=== PATIENT | female | born 1950 | race Caucasian/White ===

== ENCOUNTER → 2016-10-29 | Outpatient (CLI) | payer OTHER, BC ==
--- NOTE | 2016-10-29 09:18 | DX ---
Right hip series 2 views 0840 hours. History: Follow-up right total hip arthroplasty performed September 21, 2016. Findings: Comparison to July 09, 2016. Right total hip arthroplasty is in good position and alignment. No fractures are seen. The left hip j oint space is normal. There is stable mild sclerosis at the right SI joint. The symphysis is normal i n appearance. There is no evidence of pelvic tilt on upright view There are stable curvilinear calcif ications along the pelvic sidewall bilaterally as well as phlebolith in the left lower pelvis. Impression: 1. Good position and alignment of right total hip arthroplasty. 2. Mild sclerosis about the right SI joint probably from underlying degenerative change.
== END ==
LOC: BMCIMAGING 08:30
PROVIDERS: ATTEND Physician Assistant
DX: Z09 Encounter for follow-up examination after completed treatment for conditions other than malignant neoplasm (principal); Z96.641 Presence of right artificial hip joint

== ENCOUNTER → 2016-12-10 | Outpatient (CLI) | payer OTHER, BC | LOC: BMCIMAGING 08:41 | PROVIDERS: ATTEND Orthopaedic Surgery | DX: Z09 Encounter for follow-up examination after completed treatment for conditions other than malignant neoplasm (principal); Z96.641 Presence of right artificial hip joint ==

== ENCOUNTER → 2017-03-10 | Outpatient (CLI) | payer OTHER, BC | LOC: BMCIMAGING 08:33 | PROVIDERS: ATTEND Orthopaedic Surgery | DX: Z47.1 Aftercare following joint replacement surgery (principal); Z96.641 Presence of right artificial hip joint ==

== ENCOUNTER → 2017-07-15 | Outpatient (CLI) | payer OTHER, BC | LOC: BMCIMAGING 10:30 | PROVIDERS: ATTEND Family Medicine | DX: M25.511 Pain in right shoulder (principal); W19.XXXA Unspecified fall, initial encounter ==

== ENCOUNTER → 2017-09-15 | Outpatient (CLI) | payer OTHER, BC | LOC: BMCIMAGING 08:37 | PROVIDERS: ATTEND Orthopaedic Surgery | DX: Z96.641 Presence of right artificial hip joint (principal) ==

== ENCOUNTER → 2017-10-16 | Outpatient (CLI) | payer OTHER, BC | LOC: FIMAGING 09:27 | PROVIDERS: ATTEND Orthopaedic Surgery Hand Surgery | DX: M24.811 Other specific joint derangements of right shoulder, not elsewhere classified (principal); S46.811A Strain of other muscles, fascia and tendons at shoulder and upper arm level, right arm, initial encounter; M62.89 Other specified disorders of muscle; M19.011 Primary osteoarthritis, right shoulder; M75.31 Calcific tendinitis of right shoulder ==

== ENCOUNTER → 2017-10-30 | Outpatient (CLI) | payer OTHER, BC | LOC: FIMAGING 10:19 | PROVIDERS: ATTEND Orthopaedic Surgery | DX: Z96.641 Presence of right artificial hip joint (principal) ==

== ENCOUNTER 2017-11-16 05:53 | Day surgery (SDC) | payer OTHER, BC ==
[2017-11-16] MEDS ORDERED: ceFAZolin 2 GM/SWFI 2 GM/20 ML SYR IVP ONE (06:00)
[2017-11-16] MEDS ORDERED: LIDOCAINE 1% 2 ML INJ ID PRN (06:19)
[2017-11-16] MEDS ORDERED: LR 1,000 ML IV ONE (06:19)
[2017-11-16] MEDS ORDERED: BUPIVACAINE/EPI 0.5% 30 ML SDV ONE (06:46)
--- NOTE | 2017-11-16 06:47 | PDHPUP ---
History & Physical Update H&P update statement: This history and physical update is based on an assessment of the patient which was completed after admission or registration (within 24 hours), but prior to the surgery/procedure. H&P update: H&P reviewed & patient examined, no change in patient's condition since H&P completed
--- NOTE | 2017-11-16 06:49 | PDANEPAE ---
ANE History of Present Illness right shoulder scope ANE Past Medical History - Cardiovascular History Hx Hypertension: Yes Hx Arrhythmias: No Hx Chest Pain: No Hx Coronary Artery / Peripheral Vascular Disease: No Hx CHF / Valvular Disease: No Hx Palpitations: No Cardiovascular History Comment: pcp monitors bp medications - Pulmonary History Hx COPD: No Hx Asthma/Reactive Airway Disease: No Hx Recent Upper Respiratory Infection: No Hx Oxygen in Use at Home: No Hx Sleep Apnea: No Sleep Apnea Screening Result - Last Documented: Negative - Neurologic History Hx Cerebrovascular Accident: No Hx Seizures: No Hx Dementia: No - Endocrine History Hx Diabetes: No Hypothyroid: Yes Obesity: no Endocrine History Comment: hypothyroidism - Renal History Hx Renal Disorders: No - Liver History Hx Hepatic Disorders: No - Neurological & Psychiatric Hx Hx Neurological and Psychiatric Disorders: No - Cancer History Hx Cancer: No - Congenital Disorder History Hx Congenital Disorders: No - GI History GERD: no Hx Gastrointestinal Disorders: No - Other Health History Other Health History: wears glasses - Chronic Pain History Chronic Pain: Yes (R SHOULDER) - Surgical History Prior Surgeries: R FLORIN. surgery on bilateral feet. right eye surgery with jenelle 05/24/13. hysterectomy 35 yrs ago ANE Review of Systems Review of systems is: negative Review of Systems: - Exercise capacity METS (RN): 4 METS ANE Patient History - Allergies Allergies/Adverse Reactions: celecoxib [From Celebrex] Allergy (Severe, Verified 09/21/16 06:37) Swelling/neck,face,throat - Home Medications Home medications: home medication list seen and reviewed Home Medications: Acetaminophen [Tylenol 325mg (*)] 325 mg PO DAILY PRN 08/11/16 [Last Taken 09/19] Diltiazem HCl [Cartia XT 180mg] 180 mg PO DAILY 08/11/16 [Last Taken 11/16/17 05 :00] Estradiol [Vivelle-Dot 0.05MG (*)] 0.05 mg TD Q4D 08/11/16 [Last Taken 11/16/17] Levothyroxine [Synthroid 50 mcg (*)] 50 mcg PO DAILY06 08/11/16 [Last Taken 05:00] - NPO status NPO Since - Liquids (Date): 11/15/17 NPO Since - Liquids (Time): 19:00 NPO Since - Solids (Date): 11/15/17 NPO Since - Solids (Time): 19:00 - Anes Hx Anes Hx: no prior problems - Smoking Hx Smoking Status: Never smoked - Family Anes Hx Family Hx Anesthesia Complications: none ANE Labs/Vital Signs - Vital Signs Blood Pressure: 134/85 Heart Rate: 72 Respiratory Rate: 18 O2 Sat (%): 93 Height: 165.1 cm Weight: 70.307 kg ANE Physical Exam - Airway Neck exam: FROM Mallampati Score: Class 1 Mouth exam: normal dental/mouth exam - Pulmonary Pulmonary: no respiratory distress - Cardiovascular Cardiovascular: regular rate and rhythym - ASA Status ASA Status: II ANE Anesthesia Plan Anesthesia Plan: GA w LMA Regional Anesthesia: single shot NB, interscalene BP NB
[2017-11-16] MEDS ORDERED: PROPOFOL 200 MG/20 ML VIAL ONE (06:52)
[2017-11-16] MEDS ORDERED: fentaNYL 100 MCG/2 ML INJ ONE ×4 (06:52→11:51)
[2017-11-16] MEDS ORDERED: DEXAMETHASONE 4 MG/ML VIAL ONE (06:53)
[2017-11-16] MEDS ORDERED: LIDOCAINE 2% 5 ML SDV ONE (06:53)
[2017-11-16] MEDS ORDERED: ONDANSETRON 4 MG/2 ML VIAL ONE ×2 (06:53→12:25)
[2017-11-16] MEDS ORDERED: MIDAZOLAM 2 MG/2 ML VIAL ONE (07:00)
[2017-11-16] MEDS ORDERED: BUPIVACAINE 0.5% 30 ML SDV ONE (07:02)
[2017-11-16] MEDS ORDERED: HYDROCODONE/APAP 5/325 TAB PO PRN (10:09)
[2017-11-16] MEDS ORDERED: ONDANSETRON 4 MG/2 ML VIAL IVP PRN (10:09)
[2017-11-16] MEDS ORDERED: NALOXONE HCL 0.4 MG/ML INJ IVP PRN (10:09)
[2017-11-16] MEDS ORDERED: ALBUTEROL 3 ML DEYVIAL IH PRN (10:09)
[2017-11-16] MEDS ORDERED: METOCLOPRAMIDE 10 MG/2 ML VIAL IVP PRN (10:09)
[2017-11-16] MEDS ORDERED: PROMETHAZINE HCL 25 MG/ML INJ IVP PRN (10:09)
[2017-11-16] MEDS ORDERED: LR 500 ML IV PRN (10:09)
[2017-11-16] MEDS ORDERED: ACETAMINOPHEN 500 MG TAB PO PRN (10:09)
[2017-11-16] MEDS ORDERED: OXYCODONE/APAP 5/325 TAB PO PRN (10:09)
--- NOTE | 2017-11-16 10:10 | POSTANESTH ---
Post Anesthetic Evaluation Cardiovascular Status: Normal, Stable Respiratory Status: Normal, Stable Level of Consciousness/Mental Status: Can Participate in Eval Pain Control: Adequate, Prn Tx Ordered Nausea/Vomiting Control: Adequate, Prn Tx Ordered Complications Possibly Related to Anesthesia: None Noted
[2017-11-16] MEDS ORDERED: ceFAZolin 1 GM VIAL ONE (10:48)
[2017-11-16] MEDS ORDERED: HYDROmorphONE/DILAUDID 1 MG/ML INJ ONE (11:51)
[2017-11-16] MEDS: fentaNYL 100 MCG/2 ML INJ IVP PRN ×2 (11:53→12:29)
[2017-11-16] MEDS: HYDROmorphONE/DILAUDID 1 MG/ML INJ IVP PRN ×2 (11:54→12:37)
[2017-11-16 12:03] VITALS: TEMP 97.5
[2017-11-16] MEDS ORDERED: OXYCODONE/APAP 5/325 TAB ONE (12:24)
[2017-11-16 14:14] VITALS: BP 136/78; PULSE 76; RESP 18; O2SAT 91
--- NOTE | 2017-11-17 17:34 | GOP ---
[f rep st] OPERATIVE REPORT DATE OF OPERATION: 11/16/2017 SURGEON: Lucian Sullivan MD ANESTHESIA: General and block. PREOPERATIVE DIAGNOSIS: Right shoulder rotator cuff tear, biceps tendinitis, and acromioclavicular arthritis. POSTOPERATIVE DIAGNOSIS: Right shoulder rotator cuff tear, biceps tendinitis, and acromioclavicular arthritis. PROCEDURE PERFORMED: Right shoulder arthroscopy with limited debridement of the labrum and a biceps tenotomy, along with subacromial decompression and open repair of chronic rotator cuff tear and open distal clavicle excision. FINDINGS: INDICATIONS: This patient had been seen by me initially for shoulder pain. She has been followed for several months and has tried several injection and PT. Notably, the injection in her bicipital groove helped with her pain. She had persistent symptoms despite conservative management. An MRI was performed. The MRI showed a rotator cuff tear measuring about 2 cm in the footprint and about 2 cm across. The MRI also showed some anterior labral fraying and a very large paralabral cyst. Also seen was some mild glenohumeral arthritis, as well as AC arthritis. I discussed with her the risks and benefits of operative versus nonoperative reversal treatment. We discussed risks and benefits of surgery including pain, bleeding, infection, damage to surrounding structures, nerve injury, stiffness, loss of function, tendon recurrence, need for further operations. The patient understood the risks and wished to proceed. DESCRIPTION OF PROCEDURE: Patient was seen in the preoperative holding area, consents were confirmed. She was given the opportunity ask any questions. All of her questions were answered. Surgical site was marked. The block was performed in the preop unit. She was then taken to operative suite, and the patient was transferred from the [facility] to the operating room table. After great care was taken to ensure that all bony prominences were padded, timeout was called, including surgical and anesthesia teams confirming the surgical site and procedure to be performed. The right upper extremity was prepped and draped in the usual sterile fashion. At this point, the patient was placed in the beach-chair position and the arm garduno was placed. 2 g of Ancef were given prior to incision. At this point, a diagnostic scope was performed. The scope was placed in the posterior portal in a standard fashion. Visualizing the joint, there was diffuse grade 3 chondromalacia on the glenoid side with several areas of grade 4 chondromalacia. These measured about 1 cm x 1 cm across. There were areas of grade 4 of the humerus as well, which measured slightly bigger, 2x2cm. There was, in the joint, labral fraying of the anterior inferior labrum.. The tear of the supraspinatus was identified in the joint. After performing a diagnostic scope, part of the anterior inferior labrum was debrided. After completion of the diagnostic scope as noted above, the biceps tenotomy was performed using the arthroscopic cutter. The rotator cuff tear was visualized. The scope was then introduced in the subacromial position, and then a subacromial decompression was performed in the standard fashion using the arthroscopic shaver. Part of the CA ligament was taken down. The bursa was excised using the shaver. The rotator cuff tear was visualized. The undersurface of the distal clavicle was co-planed with the acromion to prevent any impingement. The rotator cuff tear was identified and defined in the subacromial position. After this is done, the lateral portal was extended transversely, and this was dissected down to the skin to the deltoid muscle. Then, the deltoid muscle was split in the tendon raphe with a gloved finger gently. Retractor was placed. The tear was visualized. Care was taken to not splint the deltoid more than 5cm. A grasping suture was placed in the supraspinatus tendon, then used an arthroscopic grasper while visualizing through the mini open incision. The cuff was pulled over. Using the arthroscopic instruments to help visualize, the tissue was pulled over beyond the articular margin. Thus, the decision was made to perform a double row. A standard Arthrex double row repair was performed using the anchors provided. After completion of the SpeedBridge repair, then bigger skin flaps were raised until the distal clavicle joint was visualized. A T capsulotomy was performed in the joint, and then about 8-10 mm of the distal clavicle end was resected. The capsule to the AC was carefully repaired. After this was done, the wounds were carefully irrigated with copious sterile saline. Arthroscopic portal sites were closed with buried 4-o monocryl. The deltoid splint was closed and the deltoid insertion reinforced. The mini-open incision was closed in layers. ESTIMATED BLOOD LOSS: 40 cc POST-OPERATIVE PLAN: She is to be in a sling at all times except hygeine. She will f/u in 2 wks. Will f/u a rotator cuff repair protocol. IMPLANTS USED: Arthrex anchors. /[id number]/MODL MTDD
== END 2017-11-16 14:10 | disposition home or self-care (01) ==
LOC: FSGY 05:53
PROVIDERS: ATTEND Orthopaedic Surgery Hand Surgery
PROC: 0RNG4ZZ Release Right Acromioclavicular Joint, Percutaneous Endoscopic Approach (ICD-10-PCS; principal; 2017-11-16 07:15)
PROC: 0LQ14ZZ Repair Right Shoulder Tendon, Percutaneous Endoscopic Approach (ICD-10-PCS; principal; 2017-11-16 07:15)
PROC: 0MB14ZZ Excision of Right Shoulder Bursa and Ligament, Percutaneous Endoscopic Approach (ICD-10-PCS; principal; 2017-11-16 07:15)
DX: M75.121 Complete rotator cuff tear or rupture of right shoulder, not specified as traumatic (principal); M13.811 Other specified arthritis, right shoulder
CPT/HCPCS: C1713; J0171; J0690; J1100; J1170; J2250; J2405; J2704; J3010

== ENCOUNTER → 2019-02-03 | Outpatient (CLI) | payer OTHER, BC | LOC: BMCIMAGING 12:14 | PROVIDERS: ATTEND Orthopaedic Surgery Hand Surgery | DX: S92.424A Nondisplaced fracture of distal phalanx of right great toe, initial encounter for closed fracture (principal); M19.042 Primary osteoarthritis, left hand ==